=== PATIENT | male | born 2000 | race Caucasian/White ===

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

== ENCOUNTER 2018-11-10 18:05 | Emergency (ER) | payer OTHER ==
[2018-11-10] MEDS ORDERED: BUPIVACAINE 0.25% (MPF) 10 ML 10 ML VIAL INJ (22:00)
[2018-11-10] MEDS: BUPIVACAINE 0.25% (MPF) 30 ML INJ INJ (22:57)
== END 2018-11-10 23:08 | disposition home or self-care (01) ==
LOC: E/R 18:05 → FTE 23:08
DX: R51 Headache (principal); R40.2412 Glasgow coma scale score 13-15, at arrival to emergency department
CPT/HCPCS: 64450; 99282-25

== ENCOUNTER 2019-06-02 20:24 | Emergency (ER) | payer OTHER | END 2019-06-02 23:46 | disposition home or self-care (01) | LOC: E/R 20:24 | DX: H61.21 Impacted cerumen, right ear (principal); Z79.82 Long term (current) use of aspirin | CPT/HCPCS: 69210; 99283-25 ==